=== PATIENT | female | born 1980 | race Caucasian/White ===

== ENCOUNTER 2016-08-02 14:29 | Outpatient (CLI) | payer BC ==
[~2016-08-02] VITALS: Ht 170.2 cm; Wt 160.0 kg
[2016-08-02] VITALS (8 sets, daily range): BP systolic 138–169; BP diastolic 79–92
[2016-08-02] MEDS ORDERED: PRENATAL TABLE1 EAC3 PO (15:08)
[2016-08-02 15:35] LABS: EOSINOPHIL (%) 0.6 % (0-5); EOSINOPHIL COUNT 0.1 K/uL (0-0.3); HEMATOCRIT 34.2 % (36.0-46.0); IMMATURE GRANULOCYTE (%) 1.5 % (0.0-0.7); IMMATURE GRANULOCYTE COUNT 0.2 K/uL; INSTRUMENT ABS NEUTROPHIL CT 7.2 K/uL; LYMPHOCYTE COUNT 1.8 K/uL (1.0-2.8); MCHC 33.3 G/DL (30.0-36.0); MEAN PLAT.VOLUME 11.1 uM^3 (9.5-12.4); MONOCYTE COUNT 0.7 K/uL (0-0.8); NEUTROPHIL (%) 72.5 % (45-76); NEUTROPHIL COUNT 7.2 K/uL (1.8-6.4); PLATELET COUNT 132 K/uL (156-360); RBC DIS.WIDTH-CV 14.4 % (11.8-14.6); RBC DIS.WIDTH-SD 45.6 % (39-53); RED BLOOD COUNT 3.93 M/uL (3.80-5.20); WHITE BLOOD COUNT 9.9 K/uL (4.1-10.2)
[2016-08-02 15:59] LABS: ANION GAP 8 MEQ/L (2-14); CHLORIDE 106 MEQ/L (99-109); POTASSIUM 4.3 MEQ/L (3.7-5.4); SAMPLE HEMOLYSIS CHECK 0; SAMPLE ICTERIC CHECK 0; SAMPLE LIPEMIA CHECK 0; SODIUM 139 MEQ/L (136-147); TOTAL BILIRUBIN 0.3 MG/DL (0.0-1.0)
[2016-08-02 16:04] LABS: ALKALINE PHOSPHATASE 88 IU/L (3-129); GFR ESTIMATE (CALCULATED) > 59 mL/min/; GLUCOSE 110 mg/dL (70-99); UREA NITROGEN (BUN) 7 mg/dL (9-23)
[2016-08-02 16:04] LABS: UR CREATININE CONCENTRATION 61.8 MG/DL
== END 2016-08-02 18:00 | disposition home or self-care (01) ==
LOC: LDRP-OP 14:29 → 2WEST 14:30
PROVIDERS: Obstetrics & Gynecology
DX: O13.3 Gestational [pregnancy-induced] hypertension without significant proteinuria, third trimester (principal); Z3A.34 34 weeks gestation of pregnancy
CPT/HCPCS: 59025; 80053; 82570; 84156; 85025; G0378

== ENCOUNTER 2016-08-04 17:01 | Outpatient (CLI) | payer BC ==
[2016-08-04] VITALS (7 sets, daily range): BP systolic 138–174; BP diastolic 74–100
[~2016-08-04 17:01] MED LIST: PRENATAL TABLE1 EAC3 PO
[2016-08-04 18:08] LABS: EOSINOPHIL (%) 0.3 % (0-5); HEMATOCRIT 34.6 % (36.0-46.0); IMMATURE GRANULOCYTE (%) 1.9 % (0.0-0.7); IMMATURE GRANULOCYTE COUNT 0.2 K/uL; INSTRUMENT ABS NEUTROPHIL CT 7.8 K/uL; LYMPHOCYTE COUNT 2.1 K/uL (1.0-2.8); MCH 29.4 PG (29.0-34.0); MCHC 34.1 G/DL (30.0-36.0); MCV 86.1 FL (83-99); MEAN PLAT.VOLUME 11.2 uM^3 (9.5-12.4); MONOCYTE (%) 6.3 % (3-12); MONOCYTE COUNT 0.7 K/uL (0-0.8); NEUTROPHIL (%) 72.1 % (45-76); NEUTROPHIL COUNT 7.8 K/uL (1.8-6.4); PLATELET COUNT 140 K/uL (156-360); RBC DIS.WIDTH-CV 14.1 % (11.8-14.6); RBC DIS.WIDTH-SD 43.6 % (39-53); RED BLOOD COUNT 4.02 M/uL (3.80-5.20); WHITE BLOOD COUNT 10.8 K/uL (4.1-10.2)
[2016-08-04 18:40] LABS: ALKALINE PHOSPHATASE 93 IU/L (3-129); ANION GAP 11 MEQ/L (2-14); CHLORIDE 104 MEQ/L (99-109); GFR ESTIMATE (CALCULATED) > 59 mL/min/; GLUCOSE 74 mg/dL (70-99); POTASSIUM 3.8 MEQ/L (3.7-5.4); SAMPLE HEMOLYSIS CHECK 0; SAMPLE ICTERIC CHECK 0; SAMPLE LIPEMIA CHECK 0; SODIUM 136 MEQ/L (136-147); UREA NITROGEN (BUN) 7 mg/dL (9-23)
[2016-08-04 18:41] LABS: TOTAL BILIRUBIN 0.4 MG/DL (0.0-1.0)
[2016-08-04 18:51] LABS: UR CREATININE CONCENTRATION 69.2 MG/DL
[2016-08-05 02:20] VITALS: BP 141/74
[2016-08-05 05:47] LABS: EOSINOPHIL (%) 0.7 % (0-5); EOSINOPHIL COUNT 0.1 K/uL (0-0.3); HEMATOCRIT 32.4 % (36.0-46.0); IMMATURE GRANULOCYTE (%) 1.3 % (0.0-0.7); IMMATURE GRANULOCYTE COUNT 0.1 K/uL; INSTRUMENT ABS NEUTROPHIL CT 6.7 K/uL; LYMPHOCYTE COUNT 2.4 K/uL (1.0-2.8); MCH 28.7 PG (29.0-34.0); MCHC 33.3 G/DL (30.0-36.0); MCV 86.2 FL (83-99); MEAN PLAT.VOLUME 11.1 uM^3 (9.5-12.4); MONOCYTE (%) 7.3 % (3-12); MONOCYTE COUNT 0.7 K/uL (0-0.8); NEUTROPHIL (%) 66.8 % (45-76); NEUTROPHIL COUNT 6.7 K/uL (1.8-6.4); PLATELET COUNT 142 K/uL (156-360); RBC DIS.WIDTH-CV 14.2 % (11.8-14.6); RBC DIS.WIDTH-SD 43.7 % (39-53); RED BLOOD COUNT 3.76 M/uL (3.80-5.20)
[2016-08-05 06:13] VITALS: BP 135/64
[2016-08-05 08:27] LABS: ALKALINE PHOSPHATASE 84 IU/L (3-129); ANION GAP 10 MEQ/L (2-14); CHLORIDE 106 MEQ/L (99-109); GFR ESTIMATE (CALCULATED) > 59 mL/min/; GLUCOSE 84 mg/dL (70-99); POTASSIUM 4.1 MEQ/L (3.7-5.4); SAMPLE HEMOLYSIS CHECK 0; SAMPLE ICTERIC CHECK 0; SAMPLE LIPEMIA CHECK 0; SODIUM 139 MEQ/L (136-147); UREA NITROGEN (BUN) 8 mg/dL (9-23)
[2016-08-05 08:30] LABS: TOTAL BILIRUBIN 0.3 MG/DL (0.0-1.0)
[2016-08-05 08:59] VITALS: BP 143/83
== END 2016-08-05 10:00 | disposition home or self-care (01) ==
LOC: LDRP-OP 17:01 → 2WEST 17:02 → LDRP-OP 10-02 18:45
PROVIDERS: Nurse Practitioner
DX: O13.3 Gestational [pregnancy-induced] hypertension without significant proteinuria, third trimester (principal); Z3A.35 35 weeks gestation of pregnancy
CPT/HCPCS: 59025; 80053; 82570; 84156; 85025; G0378; J7120

== ENCOUNTER 2016-08-18 05:38 | Inpatient (IN) | payer BC ==
[2016-08-18] VITALS (7 sets, daily range): BP systolic 124–159; BP diastolic 62–93
[~2016-08-18] VITALS: Ht 170.2 cm; Wt 164.0 kg
[2016-08-19 02:55] VITALS: BP 113/70
[2016-08-19 06:08] LABS: EOSINOPHIL (%) 0.6 % (0-5); EOSINOPHIL COUNT 0.1 K/uL (0-0.3); HEMATOCRIT 31.8 % (36.0-46.0); IMMATURE GRANULOCYTE (%) 0.9 % (0.0-0.7); IMMATURE GRANULOCYTE COUNT 0.1 K/uL; MCH 29.4 PG (29.0-34.0); MCHC 33.6 G/DL (30.0-36.0); MCV 87.4 FL (83-99); MEAN PLAT.VOLUME 10.9 uM^3 (9.5-12.4); MONOCYTE (%) 6.2 % (3-12); MONOCYTE COUNT 0.7 K/uL (0-0.8); NEUTROPHIL (%) 75.3 % (45-76); PLATELET COUNT 114 K/uL (156-360); RBC DIS.WIDTH-CV 14.2 % (11.8-14.6); RBC DIS.WIDTH-SD 44.5 % (39-53); RED BLOOD COUNT 3.64 M/uL (3.80-5.20); WHITE BLOOD COUNT 11.9 K/uL (4.1-10.2)
[2016-08-19 08:31] VITALS: BP 136/79
[2016-08-19 12:06] VITALS: BP 161/70
[2016-08-19 19:58] VITALS: BP 163/84
[2016-08-20 04:53] VITALS: BP 147/69
[2016-08-20 08:15] VITALS: BP 135/86
[2016-08-20 11:31] VITALS: BP 138/80
[2016-08-20 16:30] VITALS: BP 143/88
[2016-08-20 22:00] VITALS: BP 138/86
[2016-08-20 22:09] VITALS: BP 138/86
[2016-08-21 08:30] VITALS: BP 147/83
[2016-08-21 11:40] VITALS: BP 138/88
[2016-08-21 16:15] VITALS: BP 143/98
[2016-08-21 19:57] VITALS: BP 172/82
[2016-08-21 22:27] VITALS: BP 145/88
[2016-08-22 04:00] VITALS: BP 166/83
[2016-08-22 08:06] VITALS: BP 140/79
[2016-08-22] MEDS ORDERED: ENDOCET 5-3251 EACH PO (09:58)
[2016-08-22] MEDS ORDERED: IBUPROFEN800 MG PO (09:58)
[2016-08-22 15:51] VITALS: BP 172/92
[2016-08-22] MEDS ORDERED: NIFEDIPINE ER30 MG PO (16:11)
[2016-08-22 17:44] VITALS: BP 166/98
[2016-08-22 19:20] VITALS: BP 162/86
[2016-08-22 22:20] VITALS: BP 145/92
[2016-08-23 03:30] VITALS: BP 143/72
[2016-08-23 08:25] VITALS: BP 142/91
[2016-08-23 12:30] VITALS: BP 152/92
[2016-08-23 13:28] VITALS: BP 138/84
[2016-08-23 13:43] LABS: ANION GAP 9 MEQ/L (2-14); CHLORIDE 105 MEQ/L (99-109); GFR ESTIMATE (CALCULATED) > 59 mL/min/; GLUCOSE 90 mg/dL (70-99); HEMATOCRIT 36.9 % (36.0-46.0); MCH 28.8 PG (29.0-34.0); MCHC 32.8 G/DL (30.0-36.0); MCV 87.9 FL (83-99); MEAN PLAT.VOLUME 10.4 uM^3 (9.5-12.4); POTASSIUM 4.2 MEQ/L (3.7-5.4); RBC DIS.WIDTH-SD 44.7 % (39-53); SAMPLE HEMOLYSIS CHECK 0; SAMPLE ICTERIC CHECK 0; SAMPLE LIPEMIA CHECK 0; SODIUM 139 MEQ/L (136-147); UREA NITROGEN (BUN) 8 mg/dL (9-23)
[2016-08-23 13:44] LABS: PLATELET COUNT 176 K/uL (156-360); WHITE BLOOD COUNT 7.8 K/uL (4.1-10.2)
[2016-08-23 13:49] LABS: ALKALINE PHOSPHATASE 91 IU/L (3-129); TOTAL BILIRUBIN 0.5 MG/DL (0.0-1.0)
[2016-08-23 14:06] LABS: UR CREATININE CONCENTRATION 29.6 MG/DL
[2016-08-23 15:12] VITALS: BP 145/88
[2016-08-23 19:27] VITALS: BP 143/75
[2016-08-24 00:50] VITALS: BP 130/80
[2016-08-24 03:13] VITALS: BP 142/82
[2016-08-24] MEDS ORDERED: LABETALOL HCL200 MG PO (06:22)
[2016-08-24] MEDS ORDERED: AMOX TR-K CLV1 EAC4 PO (07:11)
[2016-08-24 08:43] VITALS: BP 134/77
[2016-08-24 12:00] VITALS: BP 136/78
== END 2016-08-24 15:15 | disposition home or self-care (01) | DRG 765 ==
LOC: 2WEST 05:38 → 2SOUTH 08:51 → 2WEST 08-24 00:15
PROVIDERS: Midwife; Obstetrics & Gynecology
PROC: 10D00Z1 Extraction of Products of Conception, Low, Open Approach (ICD-10-PCS; principal; 2016-08-18)
DX: O10.92 Unspecified pre-existing hypertension complicating childbirth (principal); Z68.43 Body mass index [BMI] 50.0-59.9, adult; O99.214 Obesity complicating childbirth; E66.01 Morbid (severe) obesity due to excess calories; O69.81X0 Labor and delivery complicated by cord around neck, without compression, not applicable or unspecified; O86.0 Infection of obstetric surgical wound; Z3A.37 37 weeks gestation of pregnancy; Z37.0 Single live birth; O34.593 Maternal care for other abnormalities of gravid uterus, third trimester; N85.8 Other specified noninflammatory disorders of uterus; O75.89 Other specified complications of labor and delivery; R51 Headache; T46.1X5A Adverse effect of calcium-channel blockers, initial encounter
CPT/HCPCS: 36415; 80053; 82570; 84156; 85025; 85027; 86850; 86900; 86901; J0690; J1170; J2274; J2405; J3010; J7120